=== PATIENT | female | born 1970 | race African-American/Black ===

== ENCOUNTER 2023-02-28 14:45 | Emergency (ER) | payer SELFPAY ==
[~2023-02-28] VITALS: Ht 160 cm; Wt 109.1 kg
[2023-02-28] MEDS ORDERED: GLUCOPHAGE500 MG/TAB PO (14:59)
[2023-02-28] MEDS ORDERED: PRINIVIL10 MG PO (14:59)
[2023-02-28] MEDS ORDERED: NS 1,000 ML IV ONE (15:15)
[2023-02-28 15:27] LABS: BASO # 0.1 K/mm3 (0.0-0.2); BASO % 0.8 % (0.0-2.0); EOS # 0.3 K/mm3 (0.0-0.7); EOS % 3.8 % (0.0-4.0); GRAN # 3.9 K/mm3 (1.4-6.5); GRAN % 50.1 % (42.2-75.2); HEMATOCRIT 44.5 % (37.0-47.0); LYMPH % 38.3 % (20.0-51.0); MEAN CELL VOLUME 91 fl (80.0-100.0); MEAN CORPUSCULAR HEMOGLOBIN 31 pg (27-31); MEAN CORPUSCULAR HGB CONC 34 g/dl (33.0-37.0); MEAN PLATELET VOLUME 10.6 fl (7.4-10.4); MONO # 0.5 K/mm3 (0.1-0.6); MONO % 6.9 % (1.7-9.3); PLATELET COUNT 272 K/mm3 (130-400); RED BLOOD COUNT 4.88 M/mm3 (4.10-5.30); REDCELL DISTRIBUTION WIDTH-CV 14.4 % (11.5-14.5)
[2023-02-28] MEDS ORDERED: Ketorolac 15 MG/ML VIAL IV ONE (15:30)
[2023-02-28] MEDS ORDERED: diphenhydrAMINE 50 MG/ML 1 ML VIAL IV ONE (15:30)
[2023-02-28] MEDS ORDERED: LORazepam 2 MG/ML 1 ML VIAL IV ONE (15:30)
[2023-02-28 15:43] LABS: ALANINE AMINOTRANSFERASE 13 U/L (0-55); ALBUMIN 4.1 gm/dL (3.5-5.0); ALKALINE PHOSPHATASE 99 U/L (40-150); ANION GAP 12 mmol/L (7-16); AST,SGOT 12 U/L (5-34); BILIRUBIN,TOTAL 0.3 mg/dL (0.2-1.2); BLOOD UREA NITROGEN 20 mg/dL (10-20); CALCIUM 10.3 mg/dL (8.4-10.2); CARBON DIOXIDE 21 mmol/L (22-29); CHLORIDE 109 mmol/L (98-107); CREATININE, serum 1.12 mg/dL (0.57-1.11); GLUCOSE 101 mg/dL (70-99); POTASSIUM 3.9 mmol/L (3.5-4.5); SODIUM 142 mmol/L (136-145); TOTAL PROTEIN 8.4 gm/dL (6.2-8.1)
[2023-02-28 16:02] LABS: TSH w REFLEX 0.937 uIU/mL (0.350-4.940)
[2023-02-28 16:03] LABS: TROPONIN-I < 0.010 ng/mL (0.00-0.033)
[2023-02-28 16:18] VITALS: BP 146/77; PULSE 84
== END 2023-02-28 16:28 | disposition home or self-care (01) ==
LOC: COL.ER 14:45
PROVIDERS: Personal Emergency Response Attendant
DX: R51.9 Headache, unspecified (principal); R00.2 Palpitations; F17.200 Nicotine dependence, unspecified, uncomplicated
CPT/HCPCS: J0780; J1200; J1885; J7030

== ENCOUNTER 2023-06-23 14:41 | Emergency (ER) | payer SELFPAY ==
[~2023-06-23] VITALS: Ht 165.1 cm; Wt 97.7 kg
[~2023-06-23 14:41] MED LIST: GLUCOPHAGE500 MG/TAB PO; PRINIVIL10 MG PO
[2023-06-23 15:00] VITALS: TEMP 98.3
[2023-06-23 15:42] LABS: BASO # 0.1 K/mm3 (0.0-0.2); BASO % 0.7 % (0.0-2.0); EOS # 0.3 K/mm3 (0.0-0.7); EOS % 3.8 % (0.0-4.0); GRAN # 2.5 K/mm3 (1.4-6.5); GRAN % 35.9 % (42.2-75.2); HEMATOCRIT 46.3 % (37.0-47.0); LYMPH # 3.5 K/mm3 (1.2-3.4); LYMPH % 50.4 % (20.0-51.0); MEAN CELL VOLUME 88 fl (80.0-100.0); MEAN CORPUSCULAR HEMOGLOBIN 31 pg (27-31); MEAN CORPUSCULAR HGB CONC 35 g/dl (33.0-37.0); MEAN PLATELET VOLUME 10.8 fl (7.4-10.4); MONO # 0.6 K/mm3 (0.1-0.6); MONO % 9.1 % (1.7-9.3); PLATELET COUNT 249 K/mm3 (130-400); RED BLOOD COUNT 5.25 M/mm3 (4.10-5.30); REDCELL DISTRIBUTION WIDTH-CV 14.3 % (11.5-14.5)
[2023-06-23 16:34] LABS: BILIRUBIN,TOTAL 0.3 mg/dL (0.2-1.2); CALCIUM 10.3 mg/dL (8.4-10.2); CREATININE, serum 1.13 mg/dL (0.57-1.11); POTASSIUM 4.1 mEq/L (3.5-4.5)
[2023-06-23 17:06] VITALS: BP 119/58; PULSE 89
== END 2023-06-23 17:06 | disposition home or self-care (01) ==
LOC: COL.ER 14:41
PROVIDERS: Personal Emergency Response Attendant
DX: S09.90XA Unspecified injury of head, initial encounter (principal); R55 Syncope and collapse; X58.XXXA Exposure to other specified factors, initial encounter